=== PATIENT | male | born 1985 | race Caucasian/White ===

== ENCOUNTER 2021-02-01 08:31 | Emergency (ER) | payer OTHER, SELFPAY ==
--- NOTE | ~2021-02-01 | CT_ITS ---
EXAMINATION: CT ABDOMEN AND PELVIS WITH CONTRAST CLINICAL INFORMATION: Upper abdominal pain. Nausea and vomiting COMPARISON: None TECHNIQUE: Multidetector volumetric images were obtained from the superior aspect of the liver through the pubic symphysis following administration 85 mL of Omnipaque 350 intravenous contrast. Sagittal and coronal reformatted images were obtained on the technologist's workstation. Oral contrast: No This CT examination was performed using dose optimization techniques as appropriate, variously including the following: *Automated exposure control *Adjustment of mA and/or kV according to patient size (this includes techniques or standardized protocols for targeted exams where dose is matched to indication/reason for exam; i.e. extremities or head) *Use of iterative reconstruction technique DLP: 478 mGy-cm FINDINGS: LUNG BASES: The visualized lung bases are unremarkable. LIVER, GALLBLADDER, AND BILIARY TREE: The liver is enlarged and demonstrates severe steatosis. No focal hepatic lesions. No intrahepatic biliary dilatation. The gallbladder is unremarkable with no evidence of radiopaque gallstones, gallbladder wall thickening, or obvious pericholecystic inflammatory changes. PANCREAS: Unremarkable. SPLEEN: Unremarkable. ADRENAL GLANDS: Unremarkable. KIDNEYS AND URETERS: The kidneys are normal in size, shape, and attenuation. No hydronephrosis, hydroureter, or calculi seen. No perinephric stranding. 3 mm too small to characterize focus observed in the central mid left kidney. BLADDER: Unremarkable. GI: There is mural thickening sigmoid colon which may be secondary to the compression, or mild colitis. The appendix is normal. There is no periappendiceal inflammatory change. There is a mild hiatal hernia observed. ABDOMINAL WALL: No significant hernia is appreciated. LYMPH NODES: Normal. VASCULAR: Normal contrast enhancement is observed within the portal vein, SMA and SMV. PELVIC VISCERA: Unremarkable. OSSEOUS STRUCTURES: Unremarkable. CT/CT abdomen pelvis w con IMPRESSION: Advanced hepatic steatosis. Small hiatal hernia. Query decompression versus mild inflammatory change in the sigmoid. Fleischner guidelines were followed.
[2021-02-01 08:37] VITALS: BP 141/93; PULSE 123; RESP 18; TEMP 36.1; O2SAT 97; BMI 24.1
--- NOTE | 2021-02-01 10:09 | ED_ITS ---
HPI - Abdominal Pain General Chief Complaint: Abdominal Pain Stated Complaint: ?Ulcer Time Seen by Provider: 02/01/21 09:57 Source: patient Mode of arrival: ambulatory Limitations: no limitations History of Present Illness HPI narrative: But is still old male all results for acute old of upper abdominal pain with nausea vomiting your heals is closely concerned with coffee- grounds emesis of your multiple episodes of vomiting acute area of his symptoms started 2 days ago, he vomited multiple times. No bright red blood in has trauma inferior and patient was able to drink a protein shake last night and today. No vomiting today. Patient has had no fevers, no diarrhea His past medical history is significant for as seizure disorder for which she is on Keppra, last seizure 3 months ago. Patient did not drink any excessive alcohol, he has had no bad foods, no sick contacts, no travel, no due for a water sources, is not taking a lot of NSAIDs MD elicited complaint: abdominal pain and other (coffee ground emesis) Pertinent past history: none Onset (ago): day(s) (2) Pain Consistency: now resolved Location: epigastric Severity: mild Pain scale (0-10): 2 Quality: aching Radiation: LUQ, RUQ and epigastric Migration to: no migration Exacerbating factors: vomiting Relieving factors: rest Associated symptoms: nausea and vomiting Related Data Previous Rx's Medication Instructions Recorded ciprofloxacin HCl 500 mg tablet 500 mg PO BID 5 Days #10 tab 02/01/21 metronidazole 500 mg tablet 500 mg PO Q8H 7 Days #21 tab 02/01/21 potassium chloride 20 mEq/15 mL 20 meq (15 mL) PO DAILY 30 Days 02/01/21 oral liquid #450 ml Allergies Allergy/AdvReac Type Severity Reaction Status Date / Time No Known Allergies Allergy Verified 02/01/21 08:36 [No Known Allergies*] Review of Systems Constitutional: Denies body ache(s), Denies chills, Reports fatigue, Denies fever(s), Denies headache(s), Denies malaise and Denies weakness Eyes: Denies diplopia Denies vertigo, Denies dizziness, Denies otalgia, Denies headache(s), Denies mouth pain, Denies post nasal drip, Denies sinus pain, Denies sinus pressure, Reports sore throat (from vomiting) and Denies throat swelling Cardiovascular: Denies chest pain, Denies syncope, Denies leg edema, Denies lightheadedness, Denies Loss of Consciousness, Denies palpitations and Denies dyspnea Respiratory: Denies chest congestion, Denies cough and Denies dyspnea Gastrointestinal: Reports abdominal pain, Denies hematochezia, Reports coffee ground emesis, Denies constipation, Denies diarrhea, Reports nausea, Reports vomiting and Denies hematemesis Musculoskeletal: Reports no additional musculoskeletal complaints Denies confusion, Denies vertigo, Denies dizziness, Denies syncope, Denies headache(s) and Denies weakness Psychiatric: Denies anxiety, Denies confusion and Denies depression Endocrine: Reports fatigue and Denies palpitations Allergic/Immunologic: Denies throat swelling Physical Exam Vital Signs: Vital Signs: Last Vital Signs Temp 97 F 02/01/21 08:37 Pulse 106 H 02/01/21 10:15 Resp 16 02/01/21 10:15 BP 128/90 H 02/01/21 10:15 Pulse Ox 96 02/01/21 10:15 BMI result Body Mass Index 24.1 Const: General: no acute distress, well developed, alert and awake; No confusion Nutritional Appearance: well nourished Orientation/consciousness: patient oriented x3 and No confusion Limitations: no limitations HENMT: Head: Yes normal to inspection, Yes normocephalic and Yes atraumatic Ears: hearing grossly normal bilaterally, external ears normal, TM's normal bilaterally and EAC's normal General nose exam: Normal external nose present Face and sinus: Yes normal facial exam and Yes sinuses nontender Mouth: Normal oral and palatal mucosa present Throat: Yes posterior oropharynx normal Eyes: Conjunctivae: conjunctivae normal Pupils: Equal, round and reactive pupils present EOM: EOMs intact bilaterally Neck: Neck: Yes full ROM, Yes no lymphadenopathy and Yes supple Resp: Effort & Inspection: normal respiratory effort and able to speak in complete sentences Auscultation: clear to auscultation bilaterally, no crackles, no rales, no rhonchi and no wheezes Cardio: Rate: regular rate Rhythm: regular rhythm Heart sounds: S1 normal heart sound present and S2 normal heart sound present GI: Inspection: Yes normal to inspection Palpation (GI): Soft to palpation, Tenderness to palpation present (GI) in the epigastrum, in the LUQ and in the RUQ, Guarding due to palpation present (GI) in the LUQ, in the RUQ and other (epigastrium) and not rigid Percussion: Yes normal to percussion Auscultation: normal bowel sounds Skin: General skin exam: no rashes or lesions noted Neuro: General: patient oriented x3 and No confusion Cranial nerves: Yes Equal, round and reactive pupils present Extrem: General: Yes normal to inspection and Yes full ROM Psych: Appearance: grossly normal Affect: normal affect Attitude: cooperative Thought process: Normal thought process present Course Course Course Narrative: 35-year-old male presents for concern of epigastric pain and coffee-ground emesis. Patient has of to do use of nausea and vomiting, vomiting is no resolved, patient has some mildly nauseous area of on exam, patient as tachycardic in the 120s, is tender and guarding and has epigastrium of left and right upper quadrant. Patient is otherwise well-appearing. Afebrile. Will get labs, lipase, magnesium, CT abdomen pelvis. Will give fluids, Zofran, and re-assess Patient is not vaccinated for COVID, will get COVID test also Reevaluation(s) Reevaluation #1: Patient's lab show him to be mildly hypokalemic at 3.2. Magnesium is 1.7 We will [id number] potassium orally and give magnesium Lipase within normal limits. CT/CT abdomen pelvis w con IMPRESSION: Advanced hepatic steatosis. Small hiatal hernia. Query decompression versus mild inflammatory change in the sigmoid. Will treat with outpatient antibiotics for colitis, will give potassium supplementation and return precautions MDM - Abdominal Pain Lab Data Result diagrams: 02/01/21 10:20 02/01/21 10:20 Labs: Lab Results 02/01/21 02/01/21 02/01/21 Range/Units 10:20 10:20 10:39 WBC 8.4 (4.8-10.8) X10*3/uL RBC 4.92 (4.60-5.80) X10*6/uL Hgb 15.8 (14.0-18.0) g/dl Hct 44.8 (42.0-52.0) % MCV 91.1 (80.0-98.0) fL MCH 32.1 (27.0-33.0) pg MCHC 35.3 (31.0-36.0) g/dl RDW 11.6 (11.0-16.0) % Plt Count 138 L (160-400) X10*3/uL MPV 10.5 (9.4-12.4) fL Immature Gran % (Auto) 0.4 (0.0-0.4) % Neut % (Auto) 79.0 H (45-73) % Lymph % (Auto) 12.6 L (20-40) % [place] % (Auto) 6.3 (2-11) % Eos % (Auto) 1.1 (0-4) % Baso % (Auto) 0.6 (0-2) % Lymph # (Auto) 1.1 L (1.2-4.9) X10*3/uL [place] # (Auto) 0.5 (0.1-1.2) X10*3/uL Eos # (Auto) 0.1 (0.0-0.4) X10*3/uL Baso # (Auto) 0.1 (0.0-0.2) X10*3/uL Abs Immat Gran (auto) 0.03 (0.00-0.03) X10*3/uL Absolute Neuts (auto) 6.7 (2.0-8.3) x10*3/uL Absolute Nucleated RBC 0.000 (0.0-0.012) X10*3/uL Nucleated RBC % (auto) 0.0 (0.0-0.2) /100WBC Sodium 135 (135-145) mmol/L Potassium 3.2 L (3.3-5.1) mmol/L Chloride 92 L (96-108) mmol/L Carbon Dioxide 31 H (22-29) mmol/L Anion Gap 15 (12-20) BUN 9 (9-16) mg/dL Creatinine 0.68 (0.5-1.4) mg/dL Estim Creat Clear Calc 129.3 Estimated GFR > 60 Random Glucose 97 (60-115) mg/dL Calcium 10.3 H (8.4-10.2) mg/dL Magnesium 1.7 (1.6-2.6) mg/dL Total Bilirubin 1.5 H (0.0-1.0) mg/dL AST 62 H (5-37) U/L ALT 28 (0-40) U/L Alkaline Phosphatase 66 (39-117) U/L Total Protein 7.3 (6.5-8.0) g/dL Albumin 4.3 (3.5-5.0) g/dL Lipase 74 (8-78) U/L Urine Color Urine Appearance Urine pH (5.0-8.0) Ur Specific [place] (1.005-1.025) Urine Protein (NEG-TRACE) MG/DL Urine Glucose (UA) (NEG) MG/DL Urine Ketones (NEG) MG/DL Urine Blood (NEG) Urine Nitrite (NEG) Ur Leukocyte Esterase (NEG) Urine RBC (0) /HPF Urine WBC (0-4) /HPF Ur Squamous Epith Cells /LPF Urine Bacteria /LPF Urine Mucus /LPF COVID-19 (MAUREEN) Negative (Negative) COVID-19 Clin Com See Note 02/01/21 Range/Units 10:39 WBC (4.8-10.8) X10*3/uL RBC (4.60-5.80) X10*6/uL Hgb (14.0-18.0) g/dl Hct (42.0-52.0) % MCV (80.0-98.0) fL MCH (27.0-33.0) pg MCHC (31.0-36.0) g/dl RDW (11.0-16.0) % Plt Count (160-400) X10*3/uL MPV (9.4-12.4) fL Immature Gran % (Auto) (0.0-0.4) % Neut % (Auto) (45-73) % Lymph % (Auto) (20-40) % [place] % (Auto) (2-11) % Eos % (Auto) (0-4) % Baso % (Auto) (0-2) % Lymph # (Auto) (1.2-4.9) X10*3/uL [place] # (Auto) (0.1-1.2) X10*3/uL Eos # (Auto) (0.0-0.4) X10*3/uL Baso # (Auto) (0.0-0.2) X10*3/uL Abs Immat Gran (auto) (0.00-0.03) X10*3/uL Absolute Neuts (auto) (2.0-8.3) x10*3/uL Absolute Nucleated RBC (0.0-0.012) X10*3/uL Nucleated RBC % (auto) (0.0-0.2) /100WBC Sodium (135-145) mmol/L Potassium (3.3-5.1) mmol/L Chloride (96-108) mmol/L Carbon Dioxide (22-29) mmol/L Anion Gap (12-20) BUN (9-16) mg/dL Creatinine (0.5-1.4) mg/dL Estim Creat Clear Calc Estimated GFR Random Glucose (60-115) mg/dL Calcium (8.4-10.2) mg/dL Magnesium (1.6-2.6) mg/dL Total Bilirubin (0.0-1.0) mg/dL AST (5-37) U/L ALT (0-40) U/L Alkaline Phosphatase (39-117) U/L Total Protein (6.5-8.0) g/dL Albumin (3.5-5.0) g/dL Lipase (8-78) U/L Urine Color DK YELLOW Urine Appearance HAZY Urine pH 7.0 (5.0-8.0) Ur Specific [place] 1.020 (1.005-1.025) Urine Protein 2+ H (NEG-TRACE) MG/DL Urine Glucose (UA) NEG (NEG) MG/DL Urine Ketones >=80 (NEG) MG/DL Urine Blood NEG (NEG) Urine Nitrite NEG (NEG) Ur Leukocyte Esterase NEG (NEG) Urine RBC 0 (0) /HPF Urine WBC 0 (0-4) /HPF Ur Squamous Epith Cells TRACE /LPF Urine Bacteria NONE /LPF Urine Mucus 4+ /LPF COVID-19 (MAUREEN) (Negative) COVID-19 Clin Com Discharge Plan Discharge Clinical Impression: Colitis, Acute hypokalemia Patient Disposition: Home, Self-Care Instructions: Hypokalemia (ED), Colitis (ED) Additional Instructions: Your potassium is low, please take potassium supplements, please take antibiotics as prescribed. Please call your primary care provider for follow-up appointment, if you have worsening pain, continuing vomiting or diarrhea, please return to emergency Prescriptions: New potassium chloride 20 mEq/15 mL liquid 20 meq PO DAILY 30 Days Qty: 450 RF: 0 metronidazole 500 mg tablet 500 mg PO Q8H 7 Days Qty: 21 RF: 0 ciprofloxacin HCl 500 mg tablet 500 mg PO BID 5 Days Qty: 10 RF: 0 PMFSH Past Medical History PMFSH Narrative: seizure disorder Social History Social History Advance Directives: No Advance Directives Information Provided: No
[2021-02-01 10:15] VITALS: BP 128/90; PULSE 106; RESP 16; O2SAT 96
[2021-02-01 10:25] LABS: MANUAL DIFF FLAG NO
[2021-02-01 10:29] LABS: Basophils Absolute Auto 0.1 X10*3/uL (0.0-0.2); Basophils Percent Auto 0.6 % (0-2); Eosinophils Absolute Auto 0.1 X10*3/uL (0.0-0.4); Eosinophils Percent Auto 1.1 % (0-4); Hematocrit 44.8 % (42.0-52.0); Hemoglobin 15.8 g/dl (14.0-18.0); Imm Gran Abs Auto 0.03 X10*3/uL (0.00-0.03); Imm Gran Pct Auto 0.4 % (0.0-0.4); Lymphocytes Absolute Auto 1.1 X10*3/uL (1.2-4.9); Lymphocytes Percent Auto 12.6 % (20-40); Mean Corpuscular HGB Conc 35.3 g/dl (31.0-36.0); Mean Corpuscular Hemoglobin 32.1 pg (27.0-33.0); Mean Corpuscular Volume 91.1 fL (80.0-98.0); Mean Platelet Volume 10.5 fL (9.4-12.4); Monocytes Absolute Auto 0.5 X10*3/uL (0.1-1.2); Monocytes Percent Auto 6.3 % (2-11); Neutrophils Absolute Auto 6.7 x10*3/uL (2.0-8.3); Platelet Count 138 X10*3/uL (160-400); Red Blood Count 4.92 X10*6/uL (4.60-5.80); Red Cell Distribution Width 11.6 % (11.0-16.0); White Blood Count 8.4 X10*3/uL (4.8-10.8)
[2021-02-01] MEDS: ondansetron HCL 4 MG/2 ML VIAL IVPUSH (10:32)
[2021-02-01] MEDS: 0.9 % Sodium Chloride 1,000 ML 999 ML IV (10:32)
[2021-02-01 10:50] LABS: Appearance Urine HAZY; Color Urine DK YELLOW; Glucose Urine UA NEG (NEG); Leukocyte Esterase Urine NEG (NEG); Nitrite Urine NEG (NEG); UACC Culture Trigger NO; Urine Blood NEG (NEG); Urine Ketones >=80 MG/DL (NEG); Urine Protein 2+ MG/DL (NEG-TRACE)
[2021-02-01 10:56] LABS: Mucus Urine 4+ /LPF; RBC Urine 0 /HPF (0); Squamous Epithelial Cell Urine TRACE /LPF; WBC Urine 0 /HPF (0-4)
[2021-02-01 11:05] LABS: COVID-19 Test Negative (Negative); IDNOW Serial# 55D5AD1C
[2021-02-01 12:13] LABS: Alanine Aminotransferase 28 U/L (0-40); Albumin Level 4.3 g/dL (3.5-5.0); Alkaline Phosphatase 66 U/L (39-117); Anion Gap 15 (12-20); Aspartate Amino Transferase 62 U/L (5-37); Bilirubin Total 1.5 mg/dL (0.0-1.0); Blood Urea Nitrogen 9 mg/dL (9-16); Calcium 10.3 mg/dL (8.4-10.2); Carbon Dioxide 31 mmol/L (22-29); Chloride 92 mmol/L (96-108); Creatinine Clr Calc Pharmacy 129.3; Estimated Glomerular Filt Rate > 60; Glucose Random 97 mg/dL (60-115); Lipase 74 U/L (8-78); Magnesium 1.7 mg/dL (1.6-2.6); Potassium 3.2 mmol/L (3.3-5.1); Sodium 135 mmol/L (135-145); Total Protein 7.3 g/dL (6.5-8.0)
[2021-02-01] MEDS: iohexoL 350 MG/ML 100 ML INFUS..BTL 85 ML IV (12:41)
[2021-02-01] MEDS: Magnesium Sulfate/D5W 1 GM/100 ML PIGGYBACK IV (13:06)
[2021-02-01] MEDS: Potassium Chloride Packet 20 MEQ PACKET 40 MEQ PO (13:06)
== END 2021-02-01 14:51 | disposition home or self-care (01) ==
PROVIDERS: Physician Assistant; Emergency Provider Emergency Medicine; PCP Internal Medicine
DX: K52.9 Noninfective gastroenteritis and colitis, unspecified (principal); E87.6 Hypokalemia; Z20.822 Contact with and (suspected) exposure to COVID-19
CPT/HCPCS: 36415; 74177; 80053; 81001; 83690; 83735; 85025; 87635; 96361; 96365; 96375; 99283; 99284; J2405; J3475; Q9967

== ENCOUNTER 2022-04-17 20:04 | Emergency (ER) | payer OTHER, SELFPAY ==
[2022-04-17 20:39] VITALS: BP 124/89; PULSE 85; RESP 16; TEMP 36.4; O2SAT 94; BMI 25.0
--- NOTE | 2022-04-17 20:39 | ED_ITS ---
HPI - Psych General Chief Complaint: Psychiatric Symptoms <JAJA Garcia - Last Filed: 04/17/22 20:44> Stated Complaint: crisis eval threating suicide,etoh <JAJA Garcia - Last Filed: 04/17/22 20:44> Time Seen by Provider: 04/17/22 21:03 <JAJA Garcia - Last Filed: 04/17/22 20:44> Source: patient <Abdulaziz Morales MD - Last Filed: 04/17/22 22:24> Mode of arrival: ambulatory <Abdulaziz Morales MD - Last Filed: 04/17/22 22:24> Limitations: no limitations <Abdulaziz Morales MD - Last Filed: 04/17/22 22:24> History of Present Illness HPI Narrative: 36-year-old male presents for psychiatric evaluation. Patient is feeling depressed and anxious. He drinks reportedly forceps out of a handle of alcohol per day. Patient offers no plan. Symptoms are moderate to severe. They are progressively getting worse. Patient denies any self-harming behavior. He is not homicidal. Denies any auditory or visual hallucinations. There is no clear relieving or exacerbating features. <Abdulaziz Morales MD - Last Filed: 04/17/22 22:24> Related Data Allergies/Adverse Reactions: Allergies Allergy/AdvReac Type Severity Reaction Status Date / Time No Known Allergies Allergy Verified 02/01/21 08:36 [No Known Allergies*] <JAJA Garcia - Last Filed: 04/17/22 20:44> [facility] Social History Social History: Social History Advance Directives: No Advance Directives Information Provided: Yes <JAJA Garcia - Last Filed: 04/17/22 20:44> Physical Exam Vital Signs: Vital Signs: Last Vital Signs Temp 97.6 F 04/17/22 20:39 Pulse 85 04/17/22 20:39 Resp 16 04/17/22 20:39 BP 124/89 04/17/22 20:39 Pulse Ox 94 04/17/22 20:39 O2 Del Method 04/17/22 20:39 BMI result Body Mass Index 25.0 <JAJA Garcia - Last Filed: 04/17/22 20:44> Vital Signs: Last Vital Signs Temp 97.6 F 04/17/22 20:39 Pulse 85 04/17/22 20:39 Resp 16 04/17/22 20:39 BP 124/89 04/17/22 20:39 Pulse Ox 94 04/17/22 20:39 O2 Del Method 04/17/22 20:39 BMI result Body Mass Index 25.0 <Abdulaziz Morales MD - Last Filed: 04/17/22 22:24> GEN: Well developed, no acute distress, alert, oriented HEENT: Normocephalic, atraumatic, normal external ears, nose appears normal, no oropharyngeal edema or exudates Eyes: Normal to appearance Neck: Supple, no lymphadenopathy Respiratory: Talks in complete sentences, no respiratory distress, clear to auscultation bilaterally Cardiovascular: Regular rate and rhythm, no murmurs rubs or gallops Abdomen: Soft, nontender, nondistended, no guarding, no rebound Back: No CVA tenderness Extremities: No clubbing cyanosis or edema Neurologic: No focal neurologic deficits, cranial nerves 2-12 intact, strength is 5/5 bilaterally, gait normal Skin: No rash <Abdulaziz Morales MD - Last Filed: 04/17/22 22:24> Course Course Course Narrative: RME-20:40PM - 36yoM with a PMHx of alcohol dependency who is presenting to the ER with mother at bedside with complaints of increased anxiety/depression with SI thoughts. No plan in place. Reports he lives alone. Was just released from Detox x 2-3 weeks ago and the minute he returned from the detox program he started drinking again per mother. Denies auditory or visual hallucination or HI. Denies any fevers, nausea vomiting, abdominal pain, recent falls or trauma, chest pain or shortness of breath or any other symptoms complaints or concerns at this time. Plan: Labs, UA, EKG ordered at this time. Patient will be sent to behavior health Pod for further evaluation treatment. <JAJA Garcia - Last Filed: 04/05 04/27 20:44> Reevaluation(s) Reevaluation #1: 28-year-old male with history of alcohol use disorder anxiety presents with suicidal ideation no plan. Patient is requesting assistance with his anxiety and suicidality. Patient is, cooperative. Routine laboratory analysis for medical clearance has been ordered already. Awaiting crisis team evaluation <Abdulaziz Morales MD - Last Filed: 04/17/22 22:24> Time: 21:14 <Abdulaziz Morales MD - Last Filed: 04/17/22 22:24> Reevaluation #2: Patient is significantly intoxicated. Patient will be medically cleared pending sobriety for psychiatric evaluation. At this time, Deanna be transitioned over to my colleague pending crisis evaluation. <Abdulaziz Morales MD - Last Filed: 04/17/22 22:24> Time: 22:23 <Abdulaziz Morales MD - Last Filed: 04/17/22 22:24> Medical Decision Making Medical Decision Making [facility] Narrative: 36-year-old male presents with suicidal ideation. Patient admits to alcohol intake daily. Patient offers no plan. Currently in our Behavioral Health thawed. He will be under constant observation. Patient will have routine laboratory analysis for medical clearance. I have offered the patient anxiety medications however at this time he prefers not to take anything. <Abdulaziz Morales MD - Last Filed: 04/17/22 22:24> Differential Diagnosis Differential Diagnoses: The differential diagnosis associated with the presentation includes (Substance abuse, depression, anxiety, PTSD, mood disorder, adjustment reaction) <Abdulaziz Morales MD - Last Filed: 04/17/22 22:24> Admission/Observation Consideration of admission/observation: Escalation of care including admission/observation considered <Abdulaziz Morales MD - Last Filed: 04/17/22 22:24> Consult Healthcare Provider Management of the patient was discussed with: Behavioral Health Provider <Abdulaziz Morales MD - Last Filed: 04/17/22 22:24> Lab Data [facility] Lab Attestation statement: I reviewed the patient's lab results. <Abdulaziz Morales MD - Last Filed: 04/17/22 22:24> Result Diagrams: 04/17/22 21:20 04/17/22 21:20 <JAJA Garcia - Last Filed: 04/17/22 20:44> Labs: Lab Results 04/17/22 04/17/22 04/17/22 Range/Units 21:20 21:20 21:20 WBC 8.9 (4.8-10.8) X10*3/uL RBC 5.51 (4.60-5.80) X10*6/uL Hgb 16.2 (14.0-18.0) g/dl Hct 47.0 (42.0-52.0) % MCV 85.3 (80.0-98.0) fL MCH 29.4 (27.0-33.0) pg MCHC 34.5 (31.0-36.0) g/dl RDW 14.0 (11.0-16.0) % Plt Count 148 L (160-400) X10*3/uL MPV Not Reportable Immature Gran % (Auto) 0.7 H (0.0-0.4) % Neut % (Auto) 79.2 H (45-73) % Lymph % (Auto) 14.0 L (20-40) % [place] % (Auto) 5.1 (2-11) % Eos % (Auto) 0.4 (0-4) % Baso % (Auto) 0.6 (0-2) % Lymph # (Auto) 1.3 (1.2-4.9) X10*3/uL [place] # (Auto) 0.5 (0.1-1.2) X10*3/uL Eos # (Auto) 0.0 (0.0-0.4) X10*3/uL Baso # (Auto) 0.1 (0.0-0.2) X10*3/uL Abs Immat Gran (auto) 0.06 H (0.00-0.03) X10*3/uL Absolute Neuts (auto) 7.1 (2.0-8.3) x10*3/uL Absolute Nucleated RBC 0.000 (0.0-0.012) X10*3/uL Nucleated RBC % (auto) 0.0 (0.0-0.2) /100WBC Smear Tech's Comments VERIFIED PT 10.7 (10.0-13.1) SEC INR 0.9 (0.9-1.1) Sodium 143 (135-145) mmol/L Potassium 3.8 (3.3-5.1) mmol/L Chloride 98 (96-108) mmol/L Carbon Dioxide 27 (22-29) mmol/L Anion Gap 22 H (12-20) BUN 11 (9-16) mg/dL Creatinine 0.67 (0.5-1.4) mg/dL Estim Creat Clear Calc 134.9 Estimated GFR > 60 Random Glucose 96 (60-115) mg/dL Calcium 8.5 D (8.4-10.2) mg/dL Magnesium 2.0 (1.6-2.6) mg/dL Total Bilirubin 1.1 H (0.0-1.0) mg/dL AST 186 H (5-37) U/L ALT 92 H (0-40) U/L Alkaline Phosphatase 100 (39-117) U/L Total Protein 7.4 (6.5-8.0) g/dL Albumin 4.5 (3.5-5.0) g/dL Lipase 53 (8-78) U/L Urine Color Urine Appearance Urine pH (5.0-9.0) Ur Specific Panther (1.005-1.025) Urine Protein (Neg-Trace) mg/dL Urine Glucose (UA) (Negative) mg/dL Urine Ketones (Negative) mg/dL Urine Blood (Negative) Urine Nitrite (Negative) Ur Leukocyte Esterase (Negative) Urine RBC (0-2) /HPF Urine WBC (0-5) /HPF Ur Squamous Epith Cells (0-2) /HPF Urine Bacteria (None Seen) Hyaline Casts (0-2) /LPF Ethyl Alcohol mg/dL Influenza Type A (PCR) (Negative) Influenza Type B (PCR) (Negative) RSV RNA Qual (PCR) (Negative) SARS-CoV-2 RNA (RT-PCR) (Negative) 04/17/22 04/17/22 04/17/22 Range/Units 21:20 21:20 21:23 WBC (4.8-10.8) X10*3/uL RBC (4.60-5.80) X10*6/uL Hgb (14.0-18.0) g/dl Hct (42.0-52.0) % MCV (80.0-98.0) fL MCH (27.0-33.0) pg MCHC (31.0-36.0) g/dl RDW (11.0-16.0) % Plt Count (160-400) X10*3/uL MPV Immature Gran % (Auto) (0.0-0.4) % Neut % (Auto) (45-73) % Lymph % (Auto) (20-40) % [place] % (Auto) (2-11) % Eos % (Auto) (0-4) % Baso % (Auto) (0-2) % Lymph # (Auto) (1.2-4.9) X10*3/uL [place] # (Auto) (0.1-1.2) X10*3/uL Eos # (Auto) (0.0-0.4) X10*3/uL Baso # (Auto) (0.0-0.2) X10*3/uL Abs Immat Gran (auto) (0.00-0.03) X10*3/uL Absolute Neuts (auto) (2.0-8.3) x10*3/uL Absolute Nucleated RBC (0.0-0.012) X10*3/uL Nucleated RBC % (auto) (0.0-0.2) /100WBC Smear Tech's Comments PT (10.0-13.1) SEC INR (0.9-1.1) Sodium (135-145) mmol/L Potassium (3.3-5.1) mmol/L Chloride (96-108) mmol/L Carbon Dioxide (22-29) mmol/L Anion Gap (12-20) BUN (9-16) mg/dL Creatinine (0.5-1.4) mg/dL Estim Creat Clear Calc Estimated GFR Random Glucose (60-115) mg/dL Calcium (8.4-10.2) mg/dL Magnesium (1.6-2.6) mg/dL Total Bilirubin (0.0-1.0) mg/dL AST (5-37) U/L ALT (0-40) U/L Alkaline Phosphatase (39-117) U/L Total Protein (6.5-8.0) g/dL Albumin (3.5-5.0) g/dL Lipase (8-78) U/L Urine Color Dark Yellow Urine Appearance Clear Urine pH 6.0 (5.0-9.0) Ur Specific Panther 1.020 (1.005-1.025) Urine Protein 100 (2+) H (Neg-Trace) mg/dL Urine Glucose (UA) Negative (Negative) mg/dL Urine Ketones 15 (Negative) mg/dL Urine Blood Negative (Negative) Urine Nitrite Negative (Negative) Ur Leukocyte Esterase Trace H (Negative) Urine RBC 3-5 H (0-2) /HPF Urine WBC 0-5 (0-5) /HPF Ur Squamous Epith Cells 0-2 (0-2) /HPF Urine Bacteria None Seen (None Seen) Hyaline Casts 3-5 (0-2) /LPF Ethyl Alcohol 461 H* mg/dL Influenza Type A (PCR) NEGATIVE (Negative) Influenza Type B (PCR) NEGATIVE (Negative) RSV RNA Qual (PCR) NEGATIVE (Negative) SARS-CoV-2 RNA (RT-PCR) NEGATIVE (Negative) <JAJA Garcia - Last Filed: 04/17/22 20:44> Lab Results 04/17/22 04/17/22 04/17/22 Range/Units 21:20 21:20 21:20 WBC 8.9 (4.8-10.8) X10*3/uL RBC 5.51 (4.60-5.80) X10*6/uL Hgb 16.2 (14.0-18.0) g/dl Hct 47.0 (42.0-52.0) % MCV 85.3 (80.0-98.0) fL MCH 29.4 (27.0-33.0) pg MCHC 34.5 (31.0-36.0) g/dl RDW 14.0 (11.0-16.0) % Plt Count 148 L (160-400) X10*3/uL MPV Not Reportable Immature Gran % (Auto) 0.7 H (0.0-0.4) % Neut % (Auto) 79.2 H (45-73) % Lymph % (Auto) 14.0 L (20-40) % [place] % (Auto) 5.1 (2-11) % Eos % (Auto) 0.4 (0-4) % Baso % (Auto) 0.6 (0-2) % Lymph # (Auto) 1.3 (1.2-4.9) X10*3/uL [place] # (Auto) 0.5 (0.1-1.2) X10*3/uL Eos # (Auto) 0.0 (0.0-0.4) X10*3/uL Baso # (Auto) 0.1 (0.0-0.2) X10*3/uL Abs Immat Gran (auto) 0.06 H (0.00-0.03) X10*3/uL Absolute Neuts (auto) 7.1 (2.0-8.3) x10*3/uL Absolute Nucleated RBC 0.000 (0.0-0.012) X10*3/uL Nucleated RBC % (auto) 0.0 (0.0-0.2) /100WBC Smear Tech's Comments VERIFIED PT 10.7 (10.0-13.1) SEC INR 0.9 (0.9-1.1) Sodium 143 (135-145) mmol/L Potassium 3.8 (3.3-5.1) mmol/L Chloride 98 (96-108) mmol/L Carbon Dioxide 27 (22-29) mmol/L Anion Gap 22 H (12-20) BUN 11 (9-16) mg/dL Creatinine 0.67 (0.5-1.4) mg/dL Estim Creat Clear Calc 134.9 Estimated GFR > 60 Random Glucose 96 (60-115) mg/dL Calcium 8.5 D (8.4-10.2) mg/dL Magnesium 2.0 (1.6-2.6) mg/dL Total Bilirubin 1.1 H (0.0-1.0) mg/dL AST 186 H (5-37) U/L ALT 92 H (0-40) U/L Alkaline Phosphatase 100 (39-117) U/L Total Protein 7.4 (6.5-8.0) g/dL Albumin 4.5 (3.5-5.0) g/dL Lipase 53 (8-78) U/L Urine Color Urine Appearance Urine pH (5.0-9.0) Ur Specific Panther (1.005-1.025) Urine Protein (Neg-Trace) mg/dL Urine Glucose (UA) (Negative) mg/dL Urine Ketones (Negative) mg/dL Urine Blood (Negative) Urine Nitrite (Negative) Ur Leukocyte Esterase (Negative) Urine RBC (0-2) /HPF Urine WBC (0-5) /HPF Ur Squamous Epith Cells (0-2) /HPF Urine Bacteria (None Seen) Hyaline Casts (0-2) /LPF Ethyl Alcohol mg/dL Influenza Type A (PCR) (Negative) Influenza Type B (PCR) (Negative) RSV RNA Qual (PCR) (Negative) SARS-CoV-2 RNA (RT-PCR) (Negative) 04/17/22 04/17/22 04/17/22 Range/Units 21:20 21:20 21:23 WBC (4.8-10.8) X10*3/uL RBC (4.60-5.80) X10*6/uL Hgb (14.0-18.0) g/dl Hct (42.0-52.0) % MCV (80.0-98.0) fL MCH (27.0-33.0) pg MCHC (31.0-36.0) g/dl RDW (11.0-16.0) % Plt Count (160-400) X10*3/uL MPV Immature Gran % (Auto) (0.0-0.4) % Neut % (Auto) (45-73) % Lymph % (Auto) (20-40) % [place] % (Auto) (2-11) % Eos % (Auto) (0-4) % Baso % (Auto) (0-2) % Lymph # (Auto) (1.2-4.9) X10*3/uL [place] # (Auto) (0.1-1.2) X10*3/uL Eos # (Auto) (0.0-0.4) X10*3/uL Baso # (Auto) (0.0-0.2) X10*3/uL Abs Immat Gran (auto) (0.00-0.03) X10*3/uL Absolute Neuts (auto) (2.0-8.3) x10*3/uL Absolute Nucleated RBC (0.0-0.012) X10*3/uL Nucleated RBC % (auto) (0.0-0.2) /100WBC Smear Tech's Comments PT (10.0-13.1) SEC INR (0.9-1.1) Sodium (135-145) mmol/L Potassium (3.3-5.1) mmol/L Chloride (96-108) mmol/L Carbon Dioxide (22-29) mmol/L Anion Gap (12-20) BUN (9-16) mg/dL Creatinine (0.5-1.4) mg/dL Estim Creat Clear Calc Estimated GFR Random Glucose (60-115) mg/dL Calcium (8.4-10.2) mg/dL Magnesium (1.6-2.6) mg/dL Total Bilirubin (0.0-1.0) mg/dL AST (5-37) U/L ALT (0-40) U/L Alkaline Phosphatase (39-117) U/L Total Protein (6.5-8.0) g/dL Albumin (3.5-5.0) g/dL Lipase (8-78) U/L Urine Color Dark Yellow Urine Appearance Clear Urine pH 6.0 (5.0-9.0) Ur Specific Panther 1.020 (1.005-1.025) Urine Protein 100 (2+) H (Neg-Trace) mg/dL Urine Glucose (UA) Negative (Negative) mg/dL Urine Ketones 15 (Negative) mg/dL Urine Blood Negative (Negative) Urine Nitrite Negative (Negative) Ur Leukocyte Esterase Trace H (Negative) Urine RBC 3-5 H (0-2) /HPF Urine WBC 0-5 (0-5) /HPF Ur Squamous Epith Cells 0-2 (0-2) /HPF Urine Bacteria None Seen (None Seen) Hyaline Casts 3-5 (0-2) /LPF Ethyl Alcohol 461 H* mg/dL Influenza Type A (PCR) NEGATIVE (Negative) Influenza Type B (PCR) NEGATIVE (Negative) RSV RNA Qual (PCR) NEGATIVE (Negative) SARS-CoV-2 RNA (RT-PCR) NEGATIVE (Negative) <Abdulaziz Morales MD - Last Filed: 04/17/22 22:24> Prescription Management I considered prescription management with: Other (With anxiety medications) <Abdulaziz Morales MD - Last Filed: 04/17/22 22:24> Discharge Plan Discharge Clinical Impression: Depression, Acute anxiety, Suicidal ideation, Alcohol intoxication <JAJA Garcia - Last Filed: 04/17/22 20:44> Patient Disposition: Still a Patient <JAJA Garcia - Last Filed: 04/17/22 20:44>
--- NOTE | 2022-04-17 20:42 | ECG_ITS ---
Test Reason : MED CLEARANCE Blood Pressure : / mmHG Vent. Rate : 073 BPM Atrial Rate : 073 BPM P-R Int : 152 ms QRS Dur : 090 ms QT Int : 400 ms P-R-T Axes : 076 071 050 degrees QTc Int : 440 ms Normal sinus rhythm Normal ECG No previous ECGs available Referred By: Rosa Linares Electronically Signed By:Julio Cesar Larson
[2022-04-17 21:35] LABS: Imm Gran Abs Auto 0.06 X10*3/uL (0.00-0.03); Imm Gran Pct Auto 0.7 % (0.0-0.4); MANUAL DIFF FLAG SCAN; Neutrophils Percent Auto 79.2 % (45-73); PLT CLUMP 1; SCAN SMEAR FLAG 1
[2022-04-17 21:36] LABS: Appearance Urine Clear; Color Urine Dark Yellow; Glucose Urine UA Negative (Negative); Leukocyte Esterase Urine Trace (Negative); Nitrite Urine Negative (Negative); UMIC TRIGGER UACC YES; Urine Blood Negative (Negative); Urine Ketones 15 mg/dL (Negative); Urine Protein 100 (2+) mg/dL (Neg-Trace)
[2022-04-17 21:37] LABS: Basophils Absolute Auto 0.1 X10*3/uL (0.0-0.2); Basophils Percent Auto 0.6 % (0-2); Eosinophils Percent Auto 0.4 % (0-4); Hemoglobin 16.2 g/dl (14.0-18.0); Lymphocytes Absolute Auto 1.3 X10*3/uL (1.2-4.9); Mean Corpuscular HGB Conc 34.5 g/dl (31.0-36.0); Mean Corpuscular Hemoglobin 29.4 pg (27.0-33.0); Mean Corpuscular Volume 85.3 fL (80.0-98.0); Monocytes Absolute Auto 0.5 X10*3/uL (0.1-1.2); Monocytes Percent Auto 5.1 % (2-11); Neutrophils Absolute Auto 7.1 x10*3/uL (2.0-8.3); Red Blood Count 5.51 X10*6/uL (4.60-5.80)
[2022-04-17 21:41] LABS: Bacteria Urine None Seen (None Seen); Squamous Epithelial Cell Urine 0-2 /HPF (0-2); WBC Urine 0-5 /HPF (0-5)
[2022-04-17 21:46] LABS: INTERNATIONAL NORM RATIO 0.9 (0.9-1.1); Prothrombin Time 10.7 SEC (10.0-13.1)
[2022-04-17 21:51] LABS: Ethanol 461 mg/dL
[2022-04-17 21:53] LABS: Platelet Count 148 X10*3/uL (160-400); White Blood Count 8.9 X10*3/uL (4.8-10.8)
[2022-04-17 21:54] LABS: SLIDE REVIEW VERIFIED
[2022-04-17 21:55] LABS: Alanine Aminotransferase 92 U/L (0-40); Albumin Level 4.5 g/dL (3.5-5.0); Alkaline Phosphatase 100 U/L (39-117); Anion Gap 22 (12-20); Aspartate Amino Transferase 186 U/L (5-37); Bilirubin Total 1.1 mg/dL (0.0-1.0); Blood Urea Nitrogen 11 mg/dL (9-16); Calcium 8.5 mg/dL (8.4-10.2); Carbon Dioxide 27 mmol/L (22-29); Chloride 98 mmol/L (96-108); Creatinine Clr Calc Pharmacy 134.9; Estimated Glomerular Filt Rate > 60; Glucose Random 96 mg/dL (60-115); Lipase 53 U/L (8-78); Potassium 3.8 mmol/L (3.3-5.1); Sodium 143 mmol/L (135-145); Total Protein 7.4 g/dL (6.5-8.0)
[2022-04-17 22:12] LABS: Influenza A PCR NEGATIVE (Negative); Influenza B PCR NEGATIVE (Negative); Resp Syncy Virus RNA Qual PCR NEGATIVE (Negative); SARS COV2 PCR INHOUSE NEGATIVE (Negative)
[2022-04-18 01:32] LABS: Amphetamine Screen Urine Not Detected (Not Detect); Barbiturates, Urine Not Detected (Not Detect); Benzodiazepines Screen Urine Not Detected (Not Detect); Cannabinoid Screen Urine Not Detected (Not Detect); Cocaine Screen Urine Not Detected (Not Detect); Fentanyl, urine Not Detected (Not Detect); Opiate Screen Urine Not Detected (Not Detect); Phencyclidine Screen Urine Not Detected (Not Detect)
--- NOTE | 2022-04-18 05:06 | PC.NURSE ---
Patient slept through the night, no distress observed/reported, med rec completed/currently not on any home medication, care consult ordered for suicidality/pending evaluation/sober at around 11 am, behavior non concerning, will continue to monitor.
[2022-04-18 06:06] VITALS: BP 127/79; PULSE 105; RESP 18; TEMP 37.1; O2SAT 96
--- NOTE | 2022-04-18 07:55 | PC.NURSE ---
pt is sleeping resp even and unlabored.
[2022-04-18 11:32] VITALS: BP 115/74; PULSE 84; RESP 18; TEMP 36.8; O2SAT 94
[2022-04-18 15:45] VITALS: PULSE 68; RESP 16; O2SAT 97
--- NOTE | 2022-04-18 15:50 | PC.NURSE ---
pt sleeping at this time, has been up walking around pod prior. Respirations even and unlabored, skin pwd, no apparent distress
[2022-04-18] MEDS: LORazepam 1 MG TABLET 2 MG PO (19:49)
--- NOTE | 2022-04-18 21:21 | MHC.RECOVSUP ---
? Reason for consult:ETOH o? Current location:06? o? Identified substance use concern:? -? Seeking ATS (detox) -? Support ? Intervention: o? ATS bed search started/completed/in process o? Community resources provided ? Plan: o? Bed search in progress to o? Follow up tomorrow? ? Additional information:RC met with pt and discussed [facility] services, as well as [facility] recovery center. RC collaborated with Care Team to get pt to agree to go to detox, [facility] submitted referral to [facility], waiting for nurses to review referral and then they will call Care Team. Please follow up with Pt and [facility] tomorrow morning.
[2022-04-19 01:44] VITALS: BP 133/94; PULSE 83; RESP 16; TEMP 37.3; O2SAT 97
--- NOTE | 2022-04-19 06:33 | PC.NURSE ---
Patient slept intermittently, Ativan 2 mg PO administered at 1949 with + effect, no distress observed/reported, patient cleared by care team, disposition detox bed search and recovery team coordinating the bed search, VSS, behavior non concerning, will continue to monitor.
[2022-04-19] MEDS: Acetaminophen 325 MG TABLET 975 MG PO (10:33)
[2022-04-19] MEDS: LORazepam 1 MG TABLET PO (10:34)
--- NOTE | 2022-04-19 12:08 | MHC.CARE ---
Referral team completed EATS bedsearch. Referral placed to [facility]. Eliezer @[facility] reporting bed availability for today. CRC will be contacting CARE to complete an intake w/pt. After intake is completed & bed has been confirmed, pt should be lyfted to facility. [address] [address]
--- NOTE | 2022-04-19 13:04 | PC.NURSE ---
ACCEPTED TO [facility] BEING SET UP BY CARE TEAM.
== END 2022-04-19 13:21 | disposition home or self-care (01) ==
PROVIDERS: Physician Assistant Medical; Emergency Provider Emergency Medicine
DX: F33.1 Major depressive disorder, recurrent, moderate (principal); F41.1 Generalized anxiety disorder; F43.0 Acute stress reaction; R45.851 Suicidal ideations; F10.129 Alcohol abuse with intoxication, unspecified; Y90.8 Blood alcohol level of 240 mg/100 ml or more; Z20.822 Contact with and (suspected) exposure to COVID-19; Z20.828 Contact with and (suspected) exposure to other viral communicable diseases; Z79.899 Other long term (current) drug therapy
CPT/HCPCS: 0241U; 36415; 80053; 80307; 81001; 82077; 83690; 83735; 85025; 85610; 93005; 99285; S9485

== ENCOUNTER 2023-02-05 09:39 | Emergency (ER) | payer OTHER, SELFPAY ==
--- NOTE | ~2023-02-05 | XR_ITS ---
EXAMINATION: XR LUMBOSACRAL SPINE CLINICAL INFORMATION: Paresthesias. COMPARISON: CT abdomen/pelvis dated 02/01/2021. TECHNIQUE: Three views of the lumbosacral spine. FINDINGS: Normal vertebral body alignment. The lumbar lordosis is maintained. No acute fracture or subluxation. No loss of vertebral body height or intervertebral disc height. Tiny anterior endplate osteophytes at L3-L4 and L4-L5. No concerning lytic or blastic osseous lesion. No abnormal soft tissue calcification. XR/XR lumbar spine 2-3V IMPRESSION: Minimal degenerative disc disease at L3-L4 and L4-L5.
--- NOTE | ~2023-02-05 | XR_ITS ---
EXAMINATION: XR HIP, RIGHT CLINICAL INFORMATION: Pain. COMPARISON: CT abdomen/pelvis dated 02/01/2021. TECHNIQUE: AP view the pelvis as well as AP and frog-leg lateral views of the right hip. FINDINGS: No acute fracture or dislocation. No significant joint space narrowing or marginal osteophytes. No osseous erosion. No evidence of avascular necrosis. No abnormal soft tissue calcification. XR/XR hip RT w PEL1V IMPRESSION: No acute osseous abnormality.
[2023-02-05 09:47] VITALS: BP 141/103; PULSE 72; RESP 18; TEMP 36; O2SAT 96; BMI 24.5
--- OUTSIDE RECORDS SUMMARY | 2023-02-05 11:18 | XMS_ITS | Continuity of Care Document ---
Author Name Unknown Organization [facility] ter Address [address] [place] [id number]- Care Team Providers Care Commercial Account Executive Name Role Phone Not on Staff, PCP Primary Care Physician Unavail able Encounter [facility] Date(s): 11/30/19 - 11/30/[address] [address]- [facility] Encounter Diagnosis Encounter for drug screening(Final) - 11/30/19 Discharge Disposition: A-D/C Home Attending Physician: Margy Castorena MD Admitting Physician: Margy Castorena MD Referring Physician: Not on Staff, Referring MD Allergies, Adverse Reactions, Alerts Substance Reaction Severity Status NKA Active Vital Signs Most recent to oldest [Reference Range]: 1 2 Oxygen Saturation [94-100 %] 98 % (11/30/19 10:41 AM) 100 % (11/30/19 10:36 AM) Pulse Rate [55-90 bpm] 82 bpm (11/30/19 10:41 AM) 110 bpm *H* (11/30/19 10:36 AM) Blood Pressure [90-138/55-84 mm Hg] 152/ 88mm Hg *H* (11/30/19 10:41 AM) Respiratory Rate [16-30 br/min] 16 br/mi n (11/30/19 10:41 AM) Temperature [96.8-100.4 DegF] 98.9 DegF (11/30/19 10:41 AM) Mode of Delivery (Oxygen) Room air (11/30/19 10:41 AM) Room air (11/30/19 10:36 AM) Blood pressure sites Arm, right (11/30/19 10:41 AM) Temperature Route Oral (11/30/19 10:41 AM)
--- OUTSIDE RECORDS SUMMARY | 2023-02-05 11:18 | XMS_ITS | Continuity of Care Document ---
Author Name Unknown Organization [facility] Address [address] [facility], [address], [address] [place] [id number]- Care Team Providers Care Rvda Master Certified Rv Technician Name Role Phone Not on Staff, PCP Primary Care Physician Unavail able Encounter [facility] Date(s): 06/21/20 - 07/21/20 [facility] [address], [address], [address] [place] [id number] Attending Physician: Oneida Ortiz Admitting Physician: AdmtrOneida Referring Physician: Admtr [id number] Allergies, Adverse Reactions, Alerts Substance Reaction Severity Status NKA Active Medications folic acid 1 mg oral tablet 1 mg, 1, tablet, By Mouth, Daily, # 30 tablet, Refills 0, Tot. Refills 0, Maintenance, 04/25/20 13:29:00 EDT, Route to Pharmacy Electronically, [facility], Partial fill upon patient request if the prescription is for a schedule II opioid... Start Date: 04/25/20 Status: Ordered Keppra 500 mg oral tablet 1 tablet = 500 mg, By Mouth, 2 times a day, # 60 tablet, 0 Refills, Maintenance, 04/25/20 13:29:00 EDT, Tablet, [facility], Partial fill upon patient request if the prescription is for a schedule II opioid drug., 165, cm, 04/24/20 17:09:... Start Date: 04/25/20 Status: Ordered multivitamin Multiple Vitamins oral tablet, chewable 1 tablet, By Mouth, Daily, # 30 tablet, 0 Refills, Maintenance, 04/22/20 12:03:00 EDT, Chew Tablet,[facility], Partial fill upon patient request if the prescription is for a schedule II opioid drug., 1 tablet By Mouth Daily,x30 days, 17... Start Date: 04/22/20 Stop Date: 05/22/20 Status: Ordered
--- OUTSIDE RECORDS SUMMARY | 2023-02-05 11:18 | XMS_ITS | Continuity of Care Document ---
Author Name Unknown Organization [facility] Address [address] [facility], [address] Floor, [address] [place] [id number]- Care Team Providers Care School Crossing Guard Supervisor Name Role Phone Not on Staff, PCP Primary Care Physician Unavail able Encounter [facility] Date(s): 04/26/20 - 07/21/20 [facility] [address], [address], [address] [place] [id number] Attending Physician: Tariq Herman MD Admitting Physician: Tariq Herman MD Referring Physician: Jennifer Chowdhury Allergies, Adverse Reactions, Alerts Substance Reaction Severity Status NKA Active Medications folic acid 1 mg oral tablet 1 mg, 1, tablet, By Mouth, Daily, # 30 tablet, Refills 0, Tot. Refills 0, Maintenance, 04/25/20 13:29:00 EDT, Route to Pharmacy Electronically, [facility], Partial fill upon patient request if the prescription is for a schedule II opioid... Start Date: 04/25/20 Status: Ordered Keppra 500 mg oral tablet 1 tablet = 500 mg, By Mouth, 2 times a day, # 60 tablet, 0 Refills, Maintenance, 04/25/20 13:29:00 EDT, Tablet, [facility], Partial fill upon patient request if the prescription is for a schedule II opioid drug., 165, cm, 04/24/20 17:09:... Start Date: 04/25/20 Status: Ordered multivitamin Multiple Vitamins oral tablet, chewable 1 tablet, By Mouth, Daily, # 30 tablet, 0 Refills, Maintenance, 04/22/20 12:03:00 EDT, Chew Tablet,[facility], Partial fill upon patient request if the prescription is for a schedule II opioid drug., 1 tablet By Mouth Daily,x30 days, 17... Start Date: 04/22/20 Stop Date: 05/22/20 Status: Ordered
--- OUTSIDE RECORDS SUMMARY | 2023-02-05 11:18 | XMS_ITS | Continuity of Care Document ---
Author Name Unknown Organization [facility] ter Address [address] [place] [id number]- Care Team Providers Care Screwhead Polisher Name Role Phone Not on Staff, PCP Primary Care Physician Unavail able Encounter [facility] Date(s): 06/07/19 - 06/07/[address] [address]- [facility] Encounter Diagnosis Umbilical hernia(Final) - 06/07/19 Discharge Disposition: A-D/C Home Attending Physician: Rg Calloway MD Admitting Physician: Rg Calloway MD Referring Physician: Not on Staff, Referring MD Allergies, Adverse Reactions, Alerts Substance Reaction Severity Status NKA Active Vital Signs Most recent to oldest [Reference Range]: 1 2 Weight 65.1 kg (06/07/19 3:32 PM) 65.1 kg (06/07/19 3:22 PM) Oxygen Saturation [94-100 %] 99 % (06/07/19 3:22 PM) Pulse Rate [55-90 bpm] 68 bpm (06/07/19 3:22 PM) Blood Pressure [90-138/55-84 mm Hg] 128/ 81mm Hg (06/07/19 3:22 PM) Respiratory Rate [16-30 br/min] 19 br/mi n (06/07/19 3:22 PM) Temperature [96.8-100.4 DegF] 98.2 DegF (06/07/19 3:22 PM) Mode of Delivery (Oxygen) Room air (06/07/19 3:22 PM) Blood pressure sites Arm, right (06/07/19 3:22 PM) Temperature Route Oral (06/07/19 3:22 PM) Dry Weight 65.1 kg (06/07/19 3:32 PM) 65.1 kg (06/07/19 3:22 PM) Weight Obtained Via Standing scale (06/07/19 3:22 PM) Dry Weight Obtained Via Standing scale (06/07/19 3:22 PM)
--- OUTSIDE RECORDS SUMMARY | 2023-02-05 11:18 | XMS_ITS | Patient Health Record ---
Author Name Unknown Organization [facility] Address [address], [place] [id number] Care Team Providers Care Thread Tool Grinder Set Up Operator Name Role Phone Carlos Brasher Unavailable [phone] REASON FOR REFERRAL No Information MEDICATIONS Medication SIG (Take, Route, Frequency, Duration) Notes Start Date End Date Status Vivitrol 380 mg 380 mg intramuscular ly every 4 weeks Right Choice 08/20/2018 Active Wellbutrin XL 150 mg/24 hours 1 tab(s) orally every 24 hours, as needed for insomnia for 28 days Active IMMUNIZATIONS Vaccine Route Administration Date Status Comme nts Tdap IM Intramuscular 10/24/2018 Administered NDC 49 [id number] PPSV 23 IM Intramuscular 10/24/2018 Administered SOCIAL HISTORY Tobacco Use: Social History Observation Description Date Details (start date - stop date) Former Smoker NA - NA Sex Assigned At : Social History Observation Description Sex Assigned At Unknown Tobacco Use Assessment MU Question Answer Notes What is your current smoking status? former smok er How long has it been since you last smoked? 1-3 months PROBLEMS Problem Type ICD Code Onset Dates Problem Status W/U Status Risk SNOMED Code Notes Problem Anemia, unspecified (D64.9) Active confirmed Anemia (217629003) Problem Overweight (E66.3) Active confirmed Overweight (193426568) Problem Alcohol abuse, uncomplicated (F10.10) Active confirmed Alcohol abuse (22870989) Problem Opioid abuse, uncomplicated (F11.10) Active confirmed Opioid abuse (8669638) Problem Cocaine abuse, uncomplicated (F14.10) Active confirmed Cocaine abuse (40321806) Problem Nicotine dependence, cigarettes, uncomplicated (F17.210) Active confirmed Tobacco user (407761605) Problem Mental disorder, not otherwise specified (F99) Active confirmed Mental disor ayanna (81624571) Problem Insomnia, unspecified (G47.00) Active confirmed Insomnia (300825262) Problem Homelessness (Z59.0) Active confirmed Homelessness (54858769) PLAN OF TREATMENT Pending Test Test Name Order Date CBC WITH MANUAL DIFF 11/25/2018 CREAT 11/25/2018 BILI,DIRECT 11/25/2018 FERRITIN 11/25/2018 HAPTOGLOBIN 11/25/2018 LACTATE DEHYDROGENASE 11/25/2018 RETICULOCYTE COUNT 11/25/2018 TOTAL IRON BINDING CAPACITY 11/25/2018 Insurance Providers Payer Name Payer Address Payer Phone Subscriber Number Group Number Insured Name Patient Relationship to Insured Coverage Start Date Coverage End Date [place] Medicaid C3 [address] [place], [place] [id number] QUETA MCFARLAND Self - patient is the insured MEDICAL (GENERAL) HISTORY Medical History History ICD Code ADHD Hospitalization History Reason Date(Month/Year) Over [facility] 07/09/18
--- OUTSIDE RECORDS SUMMARY | 2023-02-05 11:18 | XMS_ITS | Continuity of Care Document ---
Author Name Unknown Organization [facility] Address [address] [place] [id number] Care Team Providers Care Azure Developer Name Role Phone Not on Staff, PCP Primary Care Physician Unavail able Encounter [facility] Date(s): 10/04/19 - 10/04/[address] [address]- [facility] Discharge Disposition: A-D/C Home Attending Physician: Risa Sales DO Admitting Physician: Risa Sales DO Referring Physician: Not on Staff, Referring MD Allergies, Adverse Reactions, Alerts Substance Reaction Severity Status NKA Active Results Radiology Reports * Exam Date Time Procedure Performing Provider Status 10/04/19 11:41 AM Chest 2 Views Frontal and Lat Cici Gage; Keiry (Verified) Notes: (Chest 2 Views Frontal and Lat) Reason For Exam: left inferior chest wall pain, rib step off;Other: RESULT: Chest 2 Views Frontal and Lat Chest 2 Views Frontal and Lat Hx of Present Illness: pt reports left lower ant. rib pain deformity that he got when wrestling with brother yesterday. no sob; no cp; no fever; no other injuries or complaints; Reason: Other:; left inferior chest wall pain, rib step off; Clinical Question(s): Other:; Pneumothorax, Fracture COMPARISON: None. FINDINGS: LINES AND TUBES: None. LUNGS AND PLEURA: Clear lungs. Normal pulmonary vascularity. No pleural effusion. No pneumothorax. HEART, MEDIASTINUM AND CARLTON: Heart is normal in size. Normal mediastinal and hilar contour. BONES AND SOFT TISSUES: No acute abnormality. IMPRESSION: No acute abnormality. WSN: [id number] Ordering Physician: Krysten Pulido Dictated By: Elizabeth Chandler MD Dictated Date/Time: 10/04/19 11:43 a Reviewed By: Elizabeth Chandler MD Signed By: Elizabeth Chandler MD Signed Date/Time: 10/04/19 11:43 am Transcribed By: HERMINIA Transcribed Date/Time: 10/04/19 11:42 am Vital Signs Most recent to oldest [Reference Range]: 1 2 Oxygen Saturation [94-100 %] 97 % (10/04/19 11:03 AM) 100 % (10/04/19 10:40 AM) Pulse Rate [55-90 bpm] 81 bpm (10/04/19 11:03 AM) 96 bpm *H* (10/04/19 10:40 AM) Blood Pressure [90-138/55-84 mm Hg] 122/ 81mm Hg (10/04/19 11:03 AM) Respiratory Rate [16-30 br/min] 12 br/mi n *L* (10/04/19 11:03 AM) Temperature [96.8-100.4 DegF] 97.7 DegF (10/04/19 11:03 AM) Mode of Delivery (Oxygen) Room air (10/04/19 11:03 AM) Room air (10/04/19 10:40 AM) Blood pressure sites Arm, right (10/04/19 11:03 AM) Temperature Route Oral (10/04/19 11:03 AM)
--- OUTSIDE RECORDS SUMMARY | 2023-02-05 11:18 | XMS_ITS | Continuity of Care Document ---
Author Name Unknown Organization [facility] ter Address [address] [place] [id number] Care Team Providers Care Hearing Therapy Director Name Role Phone Not on Staff, PCP Primary Care Physician Unavail able Encounter [facility] Date(s): 04/13/20 - 04/22/[address] [id number] Encounter Diagnosis Alcohol withdrawal, seizure, hypokalemia(Final) - 04/13/20 Discharge Disposition: A-D/C Home Attending Physician: Lon Cobb MD Admitting Physician: Luisa Montes MD Referring Physician: Not on Staff, Referring MD Allergies, Adverse Reactions, Alerts Substance Reaction Severity Status NKA Active Medications multivitamin Multiple Vitamins oral tablet, chewable 1 tablet, By Mouth, Daily, # 30 tablet, 0 Refills, Maintenance, 04/22/20 12:03:00 EDT, Chew Tablet,[facility], Partial fill upon patient request if the prescription is for a schedule II opioid drug., 1 tablet By Mouth Daily,x30 days, 17... Start Date: 04/22/20 Stop Date: 05/22/20 Status: Ordered thiamine 100 mg oral tablet 100 mg, 1, tablet, By Mouth, Daily, for 30 days, # 30 tablet, Refills 0, Tot. Refills 0, Acute 05/22/20 12:03:00 EDT, 04/22/20 12:03:00 EDT, Route to Pharmacy Electronically, [facility], Partial fill upon patient request if the prescript... Start Date: 04/22/20 Stop Date: 05/22/20 Status: Ordered Results Radiology Reports * Exam Date Time Procedure Performing Provider Status 04/13/20 10:47 AM Chest Portable Juancarlos Weber (Verified) Notes: (Chest Portable) Reason For Exam: Pleuritic Pain RESULT: Chest Portable Chest Portable Reason: Pleuritic Pain; Clinical Question(s): Pneumothorax COMPARISON: 09/28/2019 FINDINGS: LUNGS AND PLEURA: The lungs are clear. Normal pulmonary vascularity. No pleural effusion. No pneumothorax. HEART, MEDIASTINUM AND CARLTON: Heart is normal in size. Normal upper mediastinal and hilar contour. BONES AND SOFT TISSUES: No acute abnormality. IMPRESSION: No acute abnormality. I have personally reviewed the images and I agree with this report. WSN: [id number] Ordering Physician: Jv Santacruz Dictated By: Ashutosh Marin DO Dictated Date/Time: 04/13/20 11:19 a Reviewed By: Anne Wilde MD Signed By: Anne Wilde MD Signed Date/Time: 04/13/20 11:24 am Transcribed By: HERMINIA Transcribed Date/Time: 04/13/20 10:50 am Vital Signs Most recent to oldest [Reference Range]: 1 2 3 Height 175 cm (04/13/20 8:30 PM) Weight 63.4 kg (04/13/20 8:30 PM) Oxygen Saturation [94-100 %] 100 % (04/22/20 7:00 AM) 100 % (04/22/20 2:00 AM) 99 % (04/21/20 10:57 PM) Pulse Rate [55-90 bpm] 93 bpm *H* (04/22/20 7:00 AM) 73 bpm (04/22/20 2:00 AM) 73 bpm (04/21/20 10:57 PM) Body Mass Index [18.5-24.99] 20.7 (04/13/20 8:30 PM) Blood Pressure [90-138/55-84 mm Hg] 115/75mm Hg (04/22/20 7:00 AM) 129/72mm Hg (04/22/20 2:00 AM) 128/82mm Hg (04/21/20 10:57 PM) Respiratory Rate [16-30 br/min] 18 br/min (04/22/20 7:00 AM) 19 br/min (04/22/20 2:00 AM) 18 br/min (04/21/20 10:57 PM) Temperature [96.8-100.4 DegF] 98.1 DegF (04/22/20 7:00 AM) 98.2 DegF (04/22/20 2:00 AM) 98.3 DegF (04/21/20 10:57 PM) Mode of Delivery (Oxygen) Room air (04/22/20 7:00 AM) Room air (04/22/20 2:00 AM) Room air (04/21/20 10:57 PM) Blood pressure sites Arm, right (04/22/20 7:00 AM) Arm, right (04/20/20 4:00 PM) Arm, right (04/20/20 12:00 PM) Temperature Route Oral (04/22/20 7:00 AM) Oral (04/22/20 2:00 AM) Oral (04/21/20 10:57 PM) Dry Weight 63.4 kg (04/13/20 8:30 PM)
--- OUTSIDE RECORDS SUMMARY | 2023-02-05 11:18 | XMS_ITS | Continuity of Care Document ---
Author Name Unknown Organization [facility] ter Address [address] [place] [id number] Care Team Providers Care Card Dealer Name Role Phone Not on Staff, PCP Primary Care Physician Unavail able Encounter [facility] Date(s): 04/12/20 - 04/13/[address] [address]- Encounter Diagnosis Alcohol intoxication(Final) - 04/13/20 Discharge Disposition: A-D/C Home Attending Physician: Tosha Umana MD Admitting Physician: Tosha Umana MD Referring Physician: Not on Staff, Referring MD Allergies, Adverse Reactions, Alerts Substance Reaction Severity Status NKA Active Vital Signs Most recent to oldest [Reference Range]: 1 2 3 Height 173 cm (04/13/20 2:44 AM) 173 cm (04/13/20 12:44 AM) 173 cm (04/12/20 10:16 PM) Weight 57 kg (04/13/20 2:44 AM) 57 kg (04/13/20 12:44 AM) 57 kg (04/12/20 10:16 PM) Oxygen Saturation [94-100 %] 95 % (04/13/20 5:43 AM) 98 % (04/13/20 4:20 AM) 100 % (04/13/20 2:44 AM) Pulse Rate [55-90 bpm] 95 bpm *H* (04/13/20 5:43 AM) 97 bpm *H* (04/13/20 4:20 AM) 90 bpm (04/13/20 2:44 AM) Body Mass Index [18.5-24.99] 19.05 (04/13/20 2:44 AM) 19.05 (04/13/20 12:44 AM) 19.05 (04/12/20 10:16 PM) Blood Pressure [90-138/55-84 mm Hg] 138/89mm Hg (04/13/20 5:43 AM) 123/93mm Hg (04/13/20 4:20 AM) 140/87mm Hg *H* (04/13/20 2:44 AM) Respiratory Rate [16-30 br/min] 16 br/min (04/13/20 5:43 AM) 16 br/min (04/13/20 4:20 AM) 17 br/min (04/13/20 2:44 AM) Temperature [96.8-100.4 DegF] 98.1 DegF (04/13/20 2:44 AM) 97.7 DegF (04/13/20 1:16 AM) 97.4 DegF (04/12/20 10:16 PM) Mode of Delivery (Oxygen) Room air (04/13/20 5:43 AM) Room air (04/13/20 4:20 AM) Room air (04/13/20 2:44 AM) Blood pressure sites Arm, left (04/13/20 5:43 AM) Arm, right (04/13/20 4:20 AM) Arm, left (04/13/20 2:44 AM) Temperature Route Oral (04/13/20 2:44 AM) Oral (04/13/20 1:16 AM) Oral (04/12/20 10:16 PM) Dry Weight 57 kg (04/13/20 2:44 AM) 57 kg (04/13/20 12:44 AM) 57 kg (04/12/20 10:16 PM) Weight Obtained Via Patient/family state d (04/12/20 6:24 PM) Dry Weight Obtained Via Patient/family s tated (04/12/20 6:24 PM)
--- NOTE | 2023-02-05 11:44 | ED.GENADULT ---
HPI - General Adult General Chief complaint: Extremity Injury, Lower Stated complaint: R hip pain Time Seen by Provider: 02/05/23 11:13 Source: patient Mode of arrival: ambulatory Limitations: no limitations History of Present Illness HPI narrative: Patient is a 37-year-old male presenting to the emergency department with complaint of right lower back pain for the past 2 months. Patient reports that pain developed after he was [place] [employer] [place] his daughter's birthday approximately 2 months ago. States that the pain was manageable but for the past 2 days has developed intermittent tingling down his right leg and into his foot. Has been taking bije-aga-lgwlced medications intermittently. Denies any saddle anesthesia or bowel or bladder incontinence. Denies any fevers. States that he was involved in many sports when he was younger and has chronic back pain but the paresthesias are new. States that a family member is a doctor and told him his symptoms could be a DVT. He denies any calf pain or swelling. complaint: back pain Onset (ago): month(s) Location: back Radiation: extremity and distal Severity: moderate Quality: aching Pain Consistency: colicky Relieving factors: rest Exacerbating factors: movement Associated symptoms: other (Paresthesias to right leg extending to foot) Treatments prior to arrival: NSAID Related Data Previous Rx's Medication Instructions Recorded diclofenac sodium 1 % topical gel 4 g topical QID #100 grams 02/05/23 lidocaine 5 % topical patch 1 patch topical DAILY #15 ea 02/05/23 prednisone 20 mg tablet 40 mg (2 x 20 mg) PO DAILY #10 tabs 02/05/23 Allergies Allergy/AdvReac Type Severity Reaction Status Date / Time No Known Allergies Allergy Verified 02/05/23 09:49 [No Known Allergies*] Review of Systems Review of Systems: As per HPI. Yes all other systems are reviewed and are negative Constitutional: Constitutional: Reports as per HPI [facility] Social History Social History Advance Directives: No Advance Directives Information Provided: No Physical Exam ED Vital Signs: Vital Signs - 24 hr 02/05/23 09:47 Temperature 96.8 F Pulse Rate 72 Respiratory Rate 18 Blood Pressure 141/103 H Pulse Oximetry 96 Oxygen Delivery Method Room Air BMI result Body Mass Index 24.5 Vital signs have been reviewed and appear to be correct. Blood pressure elevated. Heart rate normal. Respiratory rate normal. Temperature normal. Oxygen saturation normal. Const General: cooperative, healthy appearing and no acute distress Orientation/consciousness: oriented to person, oriented to place, oriented to time and patient oriented x3 Limitations: no limitations HENIL Head: Yes normocephalic and Yes atraumatic Ears: external ears normal General nose exam: Normal external nose present Face and sinus: Yes face symmetric Mouth: oropharynx normal and moist mucous membranes Throat: Yes uvula midline Eyes Pupils: Equal, round and reactive pupils present Neck Neck: Yes normal visual inspection, Yes no meningeal signs and Yes supple Resp Effort & Inspection: normal respiratory effort and able to speak in complete sentences Auscultation: clear to auscultation bilaterally Cardio Rate: regular rate Rhythm: regular rhythm Heart sounds: S1 normal heart sound present and S2 normal heart sound present GI Palpation (GI): Soft to palpation and nontender Auscultation: normoactive bowel sounds General: Yes no CVA tenderness Back/Spine/Pelvis Back: no CVA tenderness Thoracic/Lumbar Spine: thoracic and lumbar spine normal to inspection, thoraco-lumbar ROM normal, straight leg raise negative bilaterally, pain with thoraco-lumbar ROM, paraspinal muscle tenderness on the right in the mid lumbar and in the lower lumbar, No thoracic spinal tenderness and No lumbar spinal tenderness Pelvis: no pain with anterior-posterior compression and no pain with lateral compression Sacroiliac joints: on the right tender to palpation Sacrum: no tenderness Coccyx: no tenderness Skin General skin exam: elasticity normal and turgor normal Neuro General: oriented to person, oriented to place, oriented to time, patient oriented x3, gait normal, tone normal, moves all extremities, Normal light touch and pain sensation, no meningeal signs, no focal motor deficits, CN's II-XI intact bilaterally and deep tendon reflexes 2+ bilaterally Cranial nerves: Yes Equal, round and reactive pupils present Cognition (Neuro): normal cognition Motor exam (neuro): 5/5 motor strength present throughout, Normal motor muscle tone present throughout and Motor abnormalities not present Sensory Exam: Normal double simultaneous stimulation for sensation Extrem General: Yes full ROM, Yes no pedal edema and Yes no calf tenderness Right lower extremity: foot Details: normal capillary refill, normal to inspection, toes with normal ROM, vascular exam Details: dorsalis pedis pulse present and posterior tibial pulse present and motor-sensory exam Details: two point discrimination normal and light-touch normal Left lower extremity: foot Details: normal capillary refill, normal to inspection, toes with normal ROM, vascular exam Details: dorsalis pedis pulse present and posterior tibial pulse present and motor-sensory exam Details: two point discrimination normal and light-touch normal Psych Mental Status: mental status grossly normal Affect: normal affect Thought process: Normal thought process present Medical Decision Making Medical Decision Making MDM Narrative: Patient is a 37-year-old male presenting to the emergency department with complaint of right lower back pain for the past 2 months. On exam patient is awake, A+Ox3, BP elevated, VS otherwise WNL, afebrile, normal neurological exam without focal deficits, physical exam findings as above. Given reported symptoms and physical exam findings, initial differential includes SI joint injury, lumbar radiculopathy, disc herniation, fracture. X-ray notable for no evidence of acute fracture L spine or hip, minimal degenerative disease noted at L3-4 and L4-5.. My interpretation is in agreement with the radiologist's interpretation. Will treat with short course of prednisone, topical lidocaine and diclofenac. Patient reports that he already has an appointment for physical therapy established. Instructed patient to follow-up with PCP. Return precautions discussed. Patient verbalized understanding of and agreement plan. Differential Diagnosis Differential Diagnoses: The differential diagnosis associated with the presentation includes As per MDM. Independent Interpretation I performed an independent interpretation of an: Plain X-Ray Interpretation: No acute fracture to right hip or lumbar spine Radiology Impression Discussion of test interpretation with radiology: I have reviewed the radiologist's reading. Radiologist Impression: XR/XR lumbar spine 2-3V IMPRESSION: Minimal degenerative disc disease at L3-L4 and L4-L5. XR/XR hip RT w PEL1V IMPRESSION: No acute osseous abnormality. External Record Review External record reviewed: Inpatient record, Office record and Outpatient record Prescription Management I considered prescription management with: Pain Medication Discharge Plan Discharge Clinical Impression: Lumbar radiculopathy, right, Sacroiliac joint pain Patient Disposition: Home, Self-Care Instructions: Acute Low Back Pain (ED), Lumbar Radiculopathy (ED), Sacroiliitis (ED) Additional Instructions: You were evaluated in the emergency department today for back pain. Your evaluation did not show signs of medical conditions requiring emergent intervention at this time. We recommended that you use ibuprofen or Tylenol per package directions every 6 hours as needed for pain. If necessary, you can alternate these medications so that you take one medication every 3 hours. For instance, at noon take ibuprofen, then at 3:00 p.m. take Tylenol, then at 6:00 p.m. take ibuprofen. You are being prescribed a short course of prednisone which is a steroid to decrease inflammation. You have been prescribed 5% topical lidocaine patches which you can wear for up to 12 hours in a 24 hour period. Do not apply heat directly over the patches. You are also being prescribed a topical gel which you can apply to the affected areas. Please schedule an appointment for follow-up with your primary care physician this week for further evaluation of your symptoms. Return to the emergency department if you experience worsening back pain, difficulty walking, fevers, numbness, tingling, incontinence, groin numbness or tingling, or any other concerning symptoms. Prescriptions: New prednisone 20 mg tablet 40 mg PO DAILY Qty: 10 0RF lidocaine 5 % adhesive patch,medicated 1 patch topical DAILY Qty: 15 0RF Rx Instructions: leave on most painful area for up to 12 hrs diclofenac sodium 1 % gel 4 g topical QID Qty: 100 0RF Rx Instructions: apply to single knee, ankle, foot; for foot includes sole/toes/top of foot
== END 2023-02-05 12:25 | disposition home or self-care (01) ==
PROVIDERS: Emergency Provider Emergency Medicine
DX: M54.16 Radiculopathy, lumbar region (principal); M53.3 Sacrococcygeal disorders, not elsewhere classified; M54.50 Low back pain, unspecified
CPT/HCPCS: 72100; 73502; 99283